=== PATIENT | male | born 1955 | race Caucasian/White ===

== ENCOUNTER 2018-05-25 11:03 | Emergency (ER) | payer SELFPAY ==
[2018-05-25 11:08] VITALS: PULSE 88
[2018-05-25] MEDS ORDERED: Dexamethasone 4 mg/1 ml IV STA (11:41)
[2018-05-25] MEDS ORDERED: DiphenhydrAMINE 50 mg/ml Inj IVP STA (11:42)
[2018-05-25] MEDS ORDERED: Dexamethasone 4 mg/1 ml ONE (12:00)
[2018-05-25] MEDS ORDERED: DiphenhydrAMINE 50 mg/ml Inj ONE (12:00)
--- NOTE | 2018-05-25 12:06 | C.PDOC ---
History Of Present Illness 62 year old male presents to the emergency department with complaints of swelling to his nose and periorbital area. Patient states that he was experiencing flu symptoms for the past few days, and developed the swelling yesterday. Patient states that he took Benadryl and had no improvement. Patient denies nasal discharge. Time Seen by Provider: 05/25/18 11:33 Chief Complaint (Nursing): Allergic Reaction History Per: Patient History/Exam Limitations: no limitations Onset/Duration Of Symptoms: Days Current Symptoms Are (Timing): Still Present Possible Cause: Unknown Associated Symptoms: Swelling, Redness Home/EMS Treatment: Benadryl (no improvement) Past Medical History Reviewed: Historical Data, Nursing Documentation, Vital Signs Vital Signs: Last Vital Signs Temp 99.6 F 05/25/18 11:05 Pulse 88 05/25/18 11:05 Resp 20 05/25/18 11:05 BP 171/89 H 05/25/18 11:05 Pulse Ox 100 05/25/18 11:05 - Medical History PMH: HTN Denies: Chronic Kidney Disease Surgical History: No Surg Hx Family History: States: No Known Family Hx - Social History Hx Tobacco Use: Yes Hx Alcohol Use: No Hx Substance Use: No - Immunization History Hx Tetanus Toxoid Vaccination: No Hx Influenza Vaccination: No Hx Pneumococcal Vaccination: No Review Of Systems Except As Marked, All Systems Reviewed And Found Negative. Constitutional: Negative for: Fever Eyes: Positive for: Other (periorbital swelling) ENT: Positive for: Other (nasal swelling). Negative for: Nose Discharge Cardiovascular: Negative for: Chest Pain, Palpitations Respiratory: Negative for: Cough, Shortness of Breath Gastrointestinal: Negative for: Nausea, Vomiting, Abdominal Pain, Diarrhea Physical Exam - Physical Exam Appears: Non-toxic, No Acute Distress Skin: Normal Color, Warm, Dry Head: Atraumatic, Normacephalic Eye(s): bilateral: PERRL, EOMI, Other (periorbital erythema and swelling) Ear(s): Bilateral: Normal Nose: Other (swelling and erythema) Tongue: Normal Appearing, No Swelling Lips: Normal Appearing, No Swelling Throat: Normal, No Erythema, No Exudate Neck: Normal, Supple Chest: Symmetrical, No Tenderness Cardiovascular: Rhythm Regular, No Murmur Respiratory: Normal Breath Sounds, No Rales, No Rhonchi, No Wheezing Gastrointestinal/Abdominal: Soft, No Tenderness, No Guarding, No Rebound Extremity: Normal ROM Neurological/Psych: Oriented x3, Normal Speech, Normal Cognition ED Course And Treatment - Laboratory Results Result Diagrams: 05/25/18 12:34 05/25/18 12:34 O2 Sat by Pulse Oximetry: 100 (RA) Pulse Ox Interpretation: Normal Medical Decision Making Medical Decision Making: Plan: CT Sinuses CMP CBC Benadryl 25mg IVP Decadron 8mg IVP Disposition Counseled Patient/Family Regarding: Studies Performed, Diagnosis, Need For Followup, Rx Given - Disposition Disposition: HOME/ ROUTINE Disposition Time: 13:41 Condition: STABLE Prescriptions: Amoxicillin/Clavulanate [Augmentin 875 MG-125 MG] 1 tab PO BID 7 Days tab DiphenhydrAMINE [Benadryl] 25 mg PO TID #20 cap Methylprednisolone [Medrol Dose Pack (21 tabs)] 4 mg PO DAILY #21 mg Instructions: Sinusitis in Adults, Angioedema Forms: [facility] (Irish), Work/School/Gym Excuse Print Language: KINYARWANDA - POA Present On Arrival: None - Clinical Impression Clinical Impression: Allergic state, Sinusitis - Scribe Statement The provider has reviewed the documentation as recorded by the Scribe (Rudy Rashid) Provider Attestation: All medical record entries made by the Scribe were at my direction and personally dictated by me. I have reviewed the chart and agree that the record accurately reflects my personal performance of the history, physical exam, medical decision making, and the department course for this patient. I have also personally directed, reviewed, and agree with the discharge instructions and disposition.
[2018-05-25 12:46] LABS: BASO # 0.1 K/uL (0.0-0.2); BASO % 0.4 % (0.0-2.0); EOS % 0.1 % (0.0-4.0); LYMPH # 1.3 K/uL (1.0-4.3); LYMPH % 10.5 % (20.0-40.0); MEAN CELL VOLUME 94.2 fL (80.0-94.0); MEAN CORPUSCULAR HEMOGLOBIN 32.1 pg (27.0-31.0); MEAN PLATELET VOLUME 8.3 fL (7.2-11.7); MONO # 1.2 K/uL (0.0-0.8); MONO % 9.6 % (0.0-10.0); NEUT % 79.4 % (50.0-75.0); RBC 4.66 Mil/uL (4.40-5.90); RED CELL DISTRIBUTION WIDTH 12.5 % (11.5-14.5); WHITE BLOOD COUNT 12.6 K/uL (4.8-10.8)
[2018-05-25 12:59] LABS: ALB/GLOB RATIO 1.4 (1.0-2.1); ALBUMIN 4.5 g/dL (3.5-5.0); ALT/SGPT 15 U/L (21-72); AST/SGOT 27 U/L (17-59); BLOOD UREA NITROGEN 11 mg/dL (9-20); CALCIUM 9.4 mg/dl (8.6-10.4); GFR NON-AFRICAN AMERICAN > 60
--- NOTE | 2018-05-25 13:30 | CT ---
CT sinuses HISTORY: Sinusitis. Comparison: None available. Technique: Multiple contiguous axial images were performed through the paranasal sinuses without the use of intravenous contrast. This CT exam was performed using one or more of the following dose reduction techniques: Automated exposure control, adjustment of the mA and/or kV according to patient size, and/or use of iterative reconstruction technique. Findings: Moderate mucosal thickening and hypertrophy of the bilateral maxillary sinuses. In addition, there is a 1.8 centimeter mucosal retention cyst and or polyp within the posterior inferior right maxillary sinus. Mild mucosal thickening of the sphenoid sinus. Moderate to severe mucosal thickening of the ethmoid air cells. Frontal sinus is preserved. Mastoid air cells are preserved. No evidence of acute displaced fracture. Soft tissue swelling overlying the periorbital, paranasal, and premaxillary soft tissues. Orbital globes are preserved. Rightward nasal septal deviation. Moderate mucosal thickening and hypertrophy of the middle and inferior nasal turbinates. Few dental caries are noted. Narrowing at the atlantodental interval with sclerosis and bony hypertrophy. Incidentally noted is a small lacunar infarct in the left basal ganglia. Impression: Moderate mucosal thickening and hypertrophy of the bilateral maxillary sinuses. In addition, there is a 1.8 centimeter mucosal retention cyst and or polyp within the posterior inferior right maxillary sinus. Mild mucosal thickening of the sphenoid sinus. Moderate to severe mucosal thickening of the ethmoid air cells. Soft tissue swelling overlying the periorbital, paranasal, and premaxillary soft tissues. Rightward nasal septal deviation. Moderate mucosal thickening and hypertrophy of the middle and inferior nasal turbinates. Few dental caries are noted. Narrowing at the atlantodental interval with sclerosis and bony hypertrophy. Incidentally noted is a small lacunar infarct in the left basal ganglia.
[2018-05-25 14:07] VITALS: BP 154/82; RESP 16; TEMP 100.3; O2SAT 99
== END 2018-05-25 14:21 | disposition home or self-care (01) ==
LOC: C.ER 11:03
DX: J32.9 Chronic sinusitis, unspecified (principal); T78.40XA Allergy, unspecified, initial encounter
CPT/HCPCS: 70486; 80053; 85025; 96374; 96375; 99285; J1100; J1200